=== PATIENT | female | born 1975 | race Caucasian/White ===

== ENCOUNTER 2022-12-22 13:18 | Emergency (ER) | payer OTHER, SELFPAY ==
--- NOTE | ~2022-12-22 | CT_ITS ---
EXAMINATION: CT HEAD WITHOUT CONTRAST CLINICAL INFORMATION: Left arm numbness. COMPARISON: None. TECHNIQUE: Contiguous axial imaging was performed from the skullbase to vertex without intravenous administration of contrast. This CT examination was performed using dose optimization techniques as appropriate, variously including the following: *Automated exposure control *Adjustment of mA and/or kV according to patient size (this includes techniques or standardized protocols for targeted exams where dose is matched to indication/reason for exam; i.e. extremities or head) *Use of iterative reconstruction technique DLP: 627 mGy-cm. FINDINGS: There is no evidence of acute intracranial hemorrhage or territorial infarction. No abnormal mass effect or midline shift is seen. Del Toro to white matter differentiation is well preserved. No extra-axial fluid collections are identified. The ventricles are normal in size. There is no abnormal attenuation within the brain parenchyma. The osseous structures and soft tissues are normal. The mastoid air cells and visualized portions of the paranasal sinuses are well aerated. CT/CT head/brain wo IV con IMPRESSION: No acute intracranial pathology.
--- NOTE | ~2022-12-22 | XR_ITS ---
EXAMINATION: XR CERVICAL SPINE CLINICAL INFORMATION: Left arm numbness. Cervical radiculopathy. COMPARISON: None available. TECHNIQUE: 3 views of the cervical spine were obtained. FINDINGS: There are no prevertebral soft tissue or bony abnormalities demonstrated. No compression fractures or subluxations are identified. Alignment is maintained at the atlanto-axial articulation. The disc spaces are preserved. No endplate changes are seen. The prevertebral soft tissues are normal. XR/XR cervical spine 3V IMPRESSION: Unremarkable examination.
[2022-12-22 13:20] VITALS: BP 124/82; PULSE 91; RESP 18; TEMP 36.3; O2SAT 95; BMI 41.1
--- NOTE | 2022-12-22 13:22 | ED_ITS ---
HPI - General Adult General Chief complaint: Extremity Problem Stated complaint: L arm numbness Time Seen by Provider: 12/22/22 13:27 Source: patient Mode of arrival: ambulatory Limitations: no limitations History of Present Illness HPI narrative: 47-year-old female with history of obesity, boarded recent history bradycardia and hypotension who presents to the ER for evaluation of acute onset of left arm numbness and tingling that started a few hours ago while she was eating lunch. She states it started off gradually and was intermittent, coming and going. It then became more progressive and has been constant for the last few hours. She states that involves the arm, starting just below the shoulder area. She feels like her arm was asleep. She denies any weakness to the arm. She denies any numbness or tingling in the face or lower extremity. No fevers. No history of any neck pain or injury. No history of similar presentations in the past MD complaint: left arm numbness and tingling Onset (ago): hour(s) Location: left and upper extremity Radiation: distal Severity: moderate Quality: constant Relieving factors: none Exacerbating factors: none Associated symptoms: denies other symptoms Treatments prior to arrival: none Related Data Allergies Allergy/AdvReac Type Severity Reaction Status Date / Time No Known Allergies Allergy Verified 12/22/22 13:24 Review of Systems Review of Systems: Yes all other systems are reviewed and are negative [facility] Social History Social History Advance Directives: No Advance Directives Information Provided: No Physical Exam ED Vital Signs: Vital Signs - 24 hr 12/22/22 13:20 Temperature 97.4 F Pulse Rate 91 Respiratory Rate 18 Blood Pressure 124/82 Pulse Oximetry 95 Oxygen Delivery Method Room Air BMI result Body Mass Index 41.1 Appearance: Alert. Oriented X3. No acute distress. Head: normocephalic, atraumatic. face is symmetrical Eyes: Pupils equal, round and reactive to light. ENT: Pharynx normal. No tonsillar swelling or exudate. Neck: Normal inspection. Neck supple. CVS: Normal heart rate and rhythm. Pulses normal. Respiratory: No respiratory distress. Breath sounds normal. Abdomen: Soft and nontender. +BS x4 Skin: Skin warm and dry. Normal skin color. Normal skin turgor. No rashes. Extremities: No lower extremity edema. No joint swelling. Neuro/psych: Oriented X 3. No motor deficit. No sensory deficit. Patient able to differentiate light and sharp touch on the LUE. CN II-XII intact. Normal speech and cognition. NIH 0. No pronator drift. Course Course Course Narrative: RME- 47 year old female presents for evaluation of left arm numbness that started a few hours ago. NIH stroke score of 0. Plan for labs and EKG Medical Decision Making Medical Decision Making MDM Narrative: 47-year-old female presents to the ER for evaluation of acute onset of left upper extremity paresthesias that started a couple of hours ago. Her neuro exam is unremarkable, no weakness noted. She is able to differentiate between light and soft touch. No pronator drift. Cranial nerves are intact. NIH 0. There is no involvement of the left lower extremity or the left side of her face. Doubt acute CVA. Case discussed with Dr. Vance. CT head performed which was unremarkable. XR cervical spine also unremarkable. At this time clinical presentation is less concerning for acute CVA given her exam findings. Her complaints are subjective. Comfortable w/ d/c with home w/ outpatient follow up with PCP and possible neuro referral if no resolution. return precautions were discussed. Differential Diagnosis Differential Diagnoses: The differential diagnosis associated with the presentation includes paresthesias, cervical radiculopathy, stroke, nerve root impingement, dehydration, anxiety, peripheral neuropathy Admission/Observation Consideration of admission/observation: Escalation of care including admission/observation considered 47 yo female with acute onset of left arm numbness/tingling, considered admission for further workup and treatment Lab Data MDM Lab Attestation statement: I reviewed the patient's lab results. mild hypercalcemia, mildly elevated LFTs, no baseline 12/22/22 13:40 12/22/22 13:40 Labs: Lab Results 12/22/22 12/22/22 Range/Units 13:40 13:40 WBC 7.5 (4.8-10.8) X10*3/uL RBC 4.91 (4.20-5.50) X10*6/uL Hgb 13.8 (12.0-16.0) g/dl Hct 42.0 (37.0-47.0) % MCV 85.5 (80.0-98.0) fL MCH 28.1 (27.0-33.0) pg MCHC 32.9 (31.0-35.0) g/dl RDW 14.1 (11.0-16.0) % Plt Count 241 (160-400) X10*3/uL MPV 9.0 L (9.4-12.3) fL Immature Gran % (Auto) 0.1 (0.0-0.4) % Neut % (Auto) 57.5 (45-73) % Lymph % (Auto) 34.2 (20-40) % [place] % (Auto) 6.5 (2-11) % Eos % (Auto) 1.2 (0-4) % Baso % (Auto) 0.5 (0-2) % Lymph # (Auto) 2.6 (1.2-4.9) X10*3/uL [place] # (Auto) 0.5 (0.1-1.2) X10*3/uL Eos # (Auto) 0.1 (0.0-0.4) X10*3/uL Baso # (Auto) 0.0 (0.0-0.2) X10*3/uL Abs Immat Gran (auto) 0.01 (0.00-0.03) X10*3/uL Absolute Neuts (auto) 4.3 (2.0-8.3) x10*3/uL Absolute Nucleated RBC 0.000 (0.0-0.012) X10*3/uL Nucleated RBC % (auto) 0.0 (0.0-0.2) /100WBC Sodium 140 (135-145) mmol/L Potassium 4.1 (3.3-5.1) mmol/L Chloride 105 (96-108) mmol/L Carbon Dioxide 27 (22-29) mmol/L Anion Gap 12 (12-20) BUN 7 L (9-16) mg/dL Creatinine 0.86 (0.5-1.4) mg/dL Estim Creat Clear Calc 92.4 Estimated GFR > 60 Random Glucose 141 H (60-115) mg/dL Calcium 10.7 H (8.4-10.2) mg/dL Total Bilirubin 1.8 H (0.0-1.0) mg/dL AST 76 H (5-31) U/L ALT 57 H (0-31) U/L Alkaline Phosphatase 63 (39-117) U/L Total Protein 8.1 H (6.5-8.0) g/dL Albumin 4.8 (3.5-5.0) g/dL Lipase 60 (8-78) U/L Independent Interpretation I performed an independent interpretation of an: EKG, Plain X-Ray and CT Scan Interpretation: ct head without acute bleed or edema, agree w/ radiologist xr cervical spine appears normal, agree w/ radiologist ekg with normal sinus rhythm, hr 75, normal pr interval, no ST segment elevations or depressions Radiology Impression Discussion of test interpretation with radiology: I have reviewed the radiologist's reading. Radiologist Impression: EXAMINATION: CT HEAD WITHOUT CONTRAST CLINICAL INFORMATION: Left arm numbness. COMPARISON: None. TECHNIQUE: Contiguous axial imaging was performed from the skullbase to vertex without intravenous administration of contrast. This CT examination was performed using dose optimization techniques as appropriate, variously including the following: *Automated exposure control *Adjustment of mA and/or kV according to patient size (this includes techniques or standardized protocols for targeted exams where dose is matched to indication/reason for exam; i.e. extremities or head) *Use of iterative reconstruction technique DLP: 627 mGy-cm. FINDINGS: There is no evidence of acute intracranial hemorrhage or territorial infarction. No abnormal mass effect or midline shift is seen. Del Toro to white matter differentiation is well preserved. No extra-axial fluid collections are identified. The ventricles are normal in size. There is no abnormal attenuation within the brain parenchyma. The osseous structures and soft tissues are normal. The mastoid air cells and visualized portions of the paranasal sinuses are well aerated. CT/CT head/brain wo IV con IMPRESSION: No acute intracranial pathology. EXAMINATION: XR CERVICAL SPINE CLINICAL INFORMATION: Left arm numbness. Cervical radiculopathy. COMPARISON: None available. TECHNIQUE: 3 views of the cervical spine were obtained. FINDINGS: There are no prevertebral soft tissue or bony abnormalities demonstrated. No compression fractures or subluxations are identified. Alignment is maintained at the atlanto-axial articulation. The disc spaces are preserved. No endplate changes are seen. The prevertebral soft tissues are normal. XR/XR cervical spine 3V IMPRESSION: Unremarkable examination. ? Independent Historian Clinical information obtained from an independent historian. History obtained from or confirmed by: Parent Tests considered The following testing was considered but not selected: MRI considered Critical Care Time Critical Care Time Critical Care Time: No Discharge Plan Discharge Clinical Impression: Arm paresthesia, left Patient Disposition: Home, Self-Care Instructions: Paresthesia (ED) Additional Instructions: Your CT scan and x-ray today were normal. Recommend following up with your primary care doctor as well as Neurology for further evaluation and treatment If you develop new or worsening symptoms call 911 or come back to the ER for further evaluation. Referrals: [facility] [place]/Sleep [Provider Group] (left arm paresthesias) Interventions: ED Discharge Assessment Last Done: 12/22/22 15:43 Discharge Date/Time: 12/22/22 15:44
--- NOTE | 2022-12-22 13:24 | ECG_ITS ---
Test Reason : NUMBNESS Blood Pressure : / mmHG Vent. Rate : 075 BPM Atrial Rate : 075 BPM P-R Int : 170 ms QRS Dur : 078 ms QT Int : 384 ms P-R-T Axes : 032 -10 000 degrees QTc Int : 428 ms Normal sinus rhythm Inferior infarct , age undetermined Cannot rule out Anterior infarct , age undetermined Abnormal ECG No previous ECGs available Referred By: Hi Johns Electronically Signed By:LA NENA WILLIAM
[2022-12-22 13:44] LABS: MANUAL DIFF FLAG NO
[2022-12-22 13:46] LABS: Basophils Percent Auto 0.5 % (0-2); Eosinophils Absolute Auto 0.1 X10*3/uL (0.0-0.4); Eosinophils Percent Auto 1.2 % (0-4); Hemoglobin 13.8 g/dl (12.0-16.0); Imm Gran Abs Auto 0.01 X10*3/uL (0.00-0.03); Imm Gran Pct Auto 0.1 % (0.0-0.4); Lymphocytes Absolute Auto 2.6 X10*3/uL (1.2-4.9); Lymphocytes Percent Auto 34.2 % (20-40); Mean Corpuscular HGB Conc 32.9 g/dl (31.0-35.0); Mean Corpuscular Hemoglobin 28.1 pg (27.0-33.0); Mean Corpuscular Volume 85.5 fL (80.0-98.0); Monocytes Absolute Auto 0.5 X10*3/uL (0.1-1.2); Monocytes Percent Auto 6.5 % (2-11); Neutrophils Absolute Auto 4.3 x10*3/uL (2.0-8.3); Neutrophils Percent Auto 57.5 % (45-73); Platelet Count 241 X10*3/uL (160-400); Red Blood Count 4.91 X10*6/uL (4.20-5.50); Red Cell Distribution Width 14.1 % (11.0-16.0); White Blood Count 7.5 X10*3/uL (4.8-10.8)
[2022-12-22 14:02] LABS: Alanine Aminotransferase 57 U/L (0-31); Albumin Level 4.8 g/dL (3.5-5.0); Alkaline Phosphatase 63 U/L (39-117); Anion Gap 12 (12-20); Aspartate Amino Transferase 76 U/L (5-31); Bilirubin Total 1.8 mg/dL (0.0-1.0); Blood Urea Nitrogen 7 mg/dL (9-16); Calcium 10.7 mg/dL (8.4-10.2); Carbon Dioxide 27 mmol/L (22-29); Chloride 105 mmol/L (96-108); Creatinine Clr Calc Pharmacy 92.4; Estimated Glomerular Filt Rate > 60; Glucose Random 141 mg/dL (60-115); Lipase 60 U/L (8-78); Potassium 4.1 mmol/L (3.3-5.1); Sodium 140 mmol/L (135-145); Total Protein 8.1 g/dL (6.5-8.0)
== END 2022-12-22 15:44 | disposition home or self-care (01) ==
PROVIDERS: Physician Assistant; Emergency Provider Emergency Medicine
DX: M54.12 Radiculopathy, cervical region (principal); R20.0 Anesthesia of skin; M54.2 Cervicalgia; R94.31 Abnormal electrocardiogram [ECG] [EKG]; Z79.899 Other long term (current) drug therapy
CPT/HCPCS: 36415; 70450; 72040; 80053; 83690; 85025; 93005; 99283; 99284